=== PATIENT | female | born 1945 | race Hispanic/Latino ===

== ENCOUNTER 2018-06-01 14:58 | Emergency (ER) | payer OTHER ==
[~2018-06-01 14:58] MED LIST: ACET-66 PO; CHOL200059 PO; FOLI1TAB85 PO; OMEG-98 PO; ROSU20TA30 PO; TYL3 PO; VITA150T PO
[2018-06-01 15:32] LABS: BASOPHILS % (AUTO) 0.6 % (0.0-5.0); EOSINOPHILS % (AUTO) 2.5 % (0.0-8.0); HEMATOCRIT 39.8 % (36-48); LYMPHOCYTES % (AUTO) 37.1 % (21.0-51.0); MEAN CORPUSCULAR HEMOGLOBIN 28.5 pg (27.0-33.0); MEAN CORPUSCULAR HGB CONC 33.2 g/dL (32.0-36.0); MEAN CORPUSCULAR VOLUME 85.9 fL (79-99); MONOCYTES % (AUTO) 6.1 % (3.0-13.0); NEUTROPHILS % (AUTO) 53.7 % (40.0-77.0); NUCLEATED RED BLOOD CELLS 0.1 % (0.0-0.19); PLATELET COUNT (AUTO) 213 K/uL (130-400); RED BLOOD CELL COUNT(AUTO) 4.63 MIL/uL (4.00-5.50); RED CELL DISTRIBUTION WIDTH 14.3 % (11.0-15.5); WHITE BLOOD COUNT (AUTO) 5.9 K/uL (4.8-10.8)
[2018-06-01] MEDS ORDERED: ACETAMINOPHEN EXTRA STRENGTH 500 MG TABLET ONE ×2 (15:32→15:36)
[2018-06-01 15:43] LABS: CARBON DIOXIDE 26 mmol/L (21-32); CHLORIDE 103 mmol/L (101-111); CREATININE 0.9 mg/dL (0.5-1.5); GLOMERULAR FILTR. RATE CALC 65 mL/min (>60); GLUCOSE,RANDOM 119 mg/dL (70-105); POTASSIUM 3.6 mmol/L (3.5-5.1); SODIUM SERUM 140 mmol/L (136-145); UREA NITROGEN, BLOOD 23 mg/dL (7-18)
[2018-06-01 15:44] LABS: INR 0.99 (0.85-1.15); PARTIAL THROMBOPLASTIN TIME 27.1 SEC (26.3-35.5); PROTHROMBIN TIME 10.4 SEC (9.6-11.6)
[2018-06-01 15:48] LABS: ALANINE AMINOTRANSFERASE 19 U/L (12-78); ALBUMIN 3.8 g/dL (3.5-5.0); ASPARTATE AMINOTRANSFERASE 23 U/L (10-37); BILIRUBIN,TOTAL 0.6 mg/dL (0.2-1.0); CREATINE KINASE, TOTAL 84 U/L (21-232); TOTAL PROTEIN, SERUM 7.9 g/dL (6.0-8.3)
[2018-06-01 15:50] LABS: ALCOHOL, BLOOD < 3 mg/dL (0-10)
[2018-06-01] MEDS ORDERED: TETANUS/DIPHTHERIA TOXOID [ADULT] 0.5 ML VIAL IM ONE (15:50)
[2018-06-01] MEDS ORDERED: LIDOCAINE HCL 1% 20 ML VIAL ONE (15:50)
[2018-06-01] MEDS ORDERED: OCTYL 2-CYANOACRYLATE 1 EACH TP ONE (15:59)
== END 2018-06-01 17:28 | disposition home or self-care (01) ==
LOC: EDH 14:58
DX: S01.01XA Laceration without foreign body of scalp, initial encounter (principal); I12.9 Hypertensive chronic kidney disease with stage 1 through stage 4 chronic kidney disease, or unspecified chronic kidney disease; N18.9 Chronic kidney disease, unspecified; M19.90 Unspecified osteoarthritis, unspecified site; M79.7 Fibromyalgia; Z90.710 Acquired absence of both cervix and uterus; Z88.0 Allergy status to penicillin; W18.09XA Striking against other object with subsequent fall, initial encounter; Y93.89 Activity, other specified; Y92.89 Other specified places as the place of occurrence of the external cause; Y99.8 Other external cause status
CPT/HCPCS: 12031; 36415; 70450; 72125; 80053; 82550; 84484; 85025; 85610; 85730; 90471; 90714; 93005; 99284; G0480

== ENCOUNTER → 2021-12-25 | Outpatient (CLI) | payer MEDICARE ==
[~2021-12-25] MED LIST changes: -ROSU20TA30 PO; +ROSU20TA31 PO
== END | disposition home or self-care (01) ==
LOC: SHCH 09:56
PROVIDERS: ATTEND Internal Medicine Cardiovascular Disease
DX: R00.0 Tachycardia, unspecified (principal); E78.5 Hyperlipidemia, unspecified; M79.7 Fibromyalgia; N18.9 Chronic kidney disease, unspecified
CPT/HCPCS: 93306

== ENCOUNTER → 2021-12-31 | Outpatient (CLI) | payer OTHER | END | disposition home or self-care (01) | LOC: RAH 12:43 | PROVIDERS: ATTEND Internal Medicine Cardiovascular Disease | DX: Z13.6 Encounter for screening for cardiovascular disorders (principal); R93.1 Abnormal findings on diagnostic imaging of heart and coronary circulation | CPT/HCPCS: 75571 ==

== ENCOUNTER → 2024-02-04 | Outpatient (CLI) | payer MEDICARE ==
[~2024-02-04] MED LIST changes: -ROSU20TA31 PO; +ROSU20TA98 PO
== END | disposition home or self-care (01) ==
LOC: SHCH 13:12
PROVIDERS: ATTEND Internal Medicine Cardiovascular Disease
DX: I25.119 Atherosclerotic heart disease of native coronary artery with unspecified angina pectoris (principal)
CPT/HCPCS: 93306

== ENCOUNTER → 2024-05-19 | Outpatient (CLI) | payer MEDICARE ==
--- NOTE | 2024-05-24 09:30 | HMCSR ---
APPROVED REPORT Laterality: Bilateral Indications r53.1 Doppler Spectral Velocity Analysis PSV / EDVPSV / EDV ECA (R) 103 / cm/sECA (L) 113 / cm/s dICA (R) 94 / 32 cm/sdICA (L) 94 / 30 cm/s Angel (R) 79 / 27 cm/smICA (L) 84 / 28 cm/s pICA (R) 90 / 20 cm/spICA (L) 79 / 23 cm/s dCCA (R) 116 / 22 cm/sdCCA (L) 93 / 29 cm/s mCCA (R) 117 / 22 cm/smCCA (L) 127 / 29 cm/s pCCA (R) 82 / 16 cm/spCCA (L) 99 / 23 cm/s Vert (R) 50 / cm/sVert (L) 83 / cm/s Subl. (R) 229 / cm/sSubl. (L) 117 / cm/s ICA/CCA 0.80ICA/CCA 0.74 Technologist Impression Minimal plaque noted in the bilateral carotids, without hemodynamic significance. Bilateral vertebral arteries appear antegrade. Conclusion Minimal plaque noted in the bilateral carotids, without hemodynamic significance. Bilateral vertebral arteries appear antegrade. Conclusion Minimal plaque noted in the bilateral carotids, without hemodynamic significance. Bilateral vertebral arteries appear antegrade.
== END | disposition home or self-care (01) ==
LOC: SHCH 15:15
PROVIDERS: ATTEND Internal Medicine Cardiovascular Disease
DX: I25.10 Atherosclerotic heart disease of native coronary artery without angina pectoris (principal); R53.1 Weakness; E78.5 Hyperlipidemia, unspecified; E55.9 Vitamin D deficiency, unspecified; R06.02 Shortness of breath; R07.9 Chest pain, unspecified; R06.09 Other forms of dyspnea; M25.50 Pain in unspecified joint; R41.3 Other amnesia; Z79.899 Other long term (current) drug therapy
CPT/HCPCS: 93880